=== PATIENT | female | born 2000 | race Caucasian/White ===

== ENCOUNTER 2021-12-19 00:50 | Emergency (ER) | payer OTHER ==
[~2021-12-19] VITALS: Ht 160 cm; Wt 61.2 kg
[2021-12-19 00:56] VITALS: BP 111/75
--- NOTE | 2021-12-19 00:56 | NUR ---
KEVIN GIORDANO TAKEN TO CHAIR B
--- NOTE | 2021-12-19 01:12 | NUR ---
Patient taken to bed 5 via wheel chair.
[2021-12-19] MEDS: diazePAM 5 MG TAB PO ONE (01:51)
[2021-12-19] MEDS: KETOROLAC 30 MG/ML VIAL IM ONE (01:59)
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
--- NOTE | 2021-12-19 02:16 | NUR ---
XRAY AT BEDSIDE
--- NOTE | 2021-12-19 02:29 | NUR ---
PT RETURN FROM XRAY
[2021-12-19] MEDS ORDERED: ACET-10509 PO (02:59)
[2021-12-19] MEDS ORDERED: NAPR-54 PO (02:59)
[2021-12-19] MEDS ORDERED: CYCL-711 PO (02:59)
[2021-12-19 03:59] VITALS: BP 115/76
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
== END 2021-12-19 04:01 | disposition home or self-care (01) ==
LOC: MED 00:50
DX: S16.1XXA Strain of muscle, fascia and tendon at neck level, initial encounter (principal); Z79.899 Other long term (current) drug therapy; V89.2XXA Person injured in unspecified motor-vehicle accident, traffic, initial encounter; Y93.89 Activity, other specified; Y92.89 Other specified places as the place of occurrence of the external cause; Y99.8 Other external cause status
CPT/HCPCS: 71045; 72040; 81025; 96372; 99284; J1885